=== PATIENT | female | born 1950 | race African-American/Black ===

== ENCOUNTER 2021-10-29 05:43 | Day surgery (SDC) | payer OTHER, MEDICAID ==
[2021-10-27 10:51] LABS: COVID AG,FIA SOURCE NASAL SWAB
[~2021-10-29] VITALS: Ht 163 cm; Wt 60.0 kg
[~2021-10-29 05:43] MED LIST: KETOROLAC TROMETHAMINE 0.5% 5 ML OPHTHALMIC SOLUTION ONE; MOXIFLOXACIN HCL 0.5% 3 ML OPHTHALMIC SOLUTION ONE; PHENYLEPHRINE HCL 2.5% 2 ML OPHTHALMIC SOLUTION ONE; RINGERS SOLUTION,LACTATED 500 ML IV ONE; TROPICAMIDE 1% 2 ML OPHTHALMIC SOLUTION ONE
[2021-10-29] MEDS ORDERED: EPINEPHrine 1:1,000 [1 MG/ML] VIAL IM ONE (05:44)
[2021-10-29] MEDS ORDERED: LIDOCAINE/PF 1% 2 ML VIAL IM ONE (05:44)
[2021-10-29] MEDS ORDERED: MIDAZOLAM HCL 2 MG/2 ML VIAL IVP ONE (05:44)
[2021-10-29] MEDS ORDERED: FentaNYL CITRATE PF 100 MCG/2 ML VIAL IVP ONE (05:44)
[2021-10-29] MEDS ORDERED: TETRACAINE HCL/PF 0.5% 4 ML OPHTHALMIC SOLUTION OS ONE (05:44)
[2021-10-29] MEDS ORDERED: BALANCED SALT 15 ML OPHTHALMIC IRRIG.SOLN OS ONE (05:44)
[2021-10-29] MEDS ORDERED: CHONDR SULF A SOD/HYALURONATE 1.05 ML KIT IO ONE (05:44)
[2021-10-29] MEDS ORDERED: RINGERS SOLUTION,LACTATED 500 ML IV ONE (06:30)
[2021-10-29] MEDS: TROPICAMIDE 1% 2 ML OPHTHALMIC SOLUTION OS SCH ×3 (06:40→06:56)
[2021-10-29] MEDS: PHENYLEPHRINE HCL 2.5% 2 ML OPHTHALMIC SOLUTION OS SCH ×3 (06:40→06:56)
[2021-10-29] MEDS: MOXIFLOXACIN HCL 0.5% 3 ML OPHTHALMIC SOLUTION OS SCH ×3 (06:40→06:56)
[2021-10-29] MEDS: KETOROLAC TROMETHAMINE 0.5% 5 ML OPHTHALMIC SOLUTION OS SCH ×3 (06:40→06:56)
[2021-10-29] MEDS ORDERED: LISI-659 PO (07:19)
[2021-10-29] MEDS ORDERED: CHOL25TA4 PO (07:19)
[2021-10-29] MEDS ORDERED: MEMA5 PO (07:19)
[2021-10-29] MEDS ORDERED: ASPI-1450 PO (07:19)
[2021-10-29] MEDS ORDERED: ROSU20TA73 PO (07:19)
== END 2021-10-29 09:35 | disposition home or self-care (01) ==
LOC: SURGERY 05:43
PROVIDERS: ATTEND Ophthalmology
DX: H25.12 Age-related nuclear cataract, left eye (principal); I10 Essential (primary) hypertension; Z79.899 Other long term (current) drug therapy; Z87.891 Personal history of nicotine dependence; Z98.890 Other specified postprocedural states
CPT/HCPCS: 66984; 87426; 93005; C9803; J0171; J2250; J3010; J3490; J7120; Q9967; V2632

== ENCOUNTER 2021-12-03 08:54 | Day surgery (SDC) | payer OTHER, MEDICAID ==
[2021-12-01 10:54] LABS: COVID AG,FIA SOURCE NASOPHARYNGEAL
[2021-12-02] MEDS: TROPICAMIDE 1% 2 ML OPHTHALMIC SOLUTION OD SCH ×3 (10:12→10:27)
[~2021-12-03] VITALS: Ht 154.9 cm; Wt 59.0 kg
[~2021-12-03 08:54] MED LIST changes: +ASPI-1450 PO; +CHOL25TA4 PO; +LISI-659 PO; +MEMA5 PO; +ROSU20TA73 PO
[2021-12-03] MEDS ORDERED: BALANCED SALT 15 ML OPHTHALMIC IRRIG.SOLN IM ONE (08:55)
[2021-12-03] MEDS ORDERED: POVIDONE-IODINE 10% 15 ML SOLUTION UD TP ONE (08:55)
[2021-12-03] MEDS ORDERED: EPINEPHrine 1:1,000 [1 MG/ML] VIAL IM ONE (08:55)
[2021-12-03] MEDS ORDERED: LIDOCAINE/PF 1% 2 ML VIAL IM ONE (08:55)
[2021-12-03] MEDS ORDERED: TETRACAINE HCL/PF 0.5% 4 ML OPHTHALMIC SOLUTION OD ONE (08:55)
[2021-12-03] MEDS ORDERED: CHONDR SULF A SOD/HYALURONATE 1.05 ML KIT IO ONE (08:55)
[2021-12-03] MEDS: PHENYLEPHRINE HCL 2.5% 2 ML OPHTHALMIC SOLUTION OD SCH ×3 (10:12→10:27)
[2021-12-03] MEDS: KETOROLAC TROMETHAMINE 0.5% 5 ML OPHTHALMIC SOLUTION OD SCH ×3 (10:12→10:27)
[2021-12-03] MEDS: MOXIFLOXACIN HCL 0.5% 3 ML OPHTHALMIC SOLUTION OD SCH ×3 (10:12→10:27)
[2021-12-03] MEDS ORDERED: MIDAZOLAM HCL 2 MG/2 ML VIAL IVP ONE (12:00)
[2021-12-03] MEDS ORDERED: FentaNYL CITRATE PF 100 MCG/2 ML VIAL IVP ONE (12:00)
== END 2021-12-03 12:45 | disposition home or self-care (01) ==
LOC: SURGERY 08:54
PROVIDERS: ATTEND Ophthalmology
DX: H25.11 Age-related nuclear cataract, right eye (principal); I10 Essential (primary) hypertension; E78.00 Pure hypercholesterolemia, unspecified; E78.5 Hyperlipidemia, unspecified; Z79.899 Other long term (current) drug therapy; Z98.890 Other specified postprocedural states; Z86.73 Personal history of transient ischemic attack (TIA), and cerebral infarction without residual deficits
CPT/HCPCS: 87426; 66984; C9803; J0171; J3010; J3490; J2250; Q9967; J7120; V2632